=== PATIENT | male | born 1955 | race Caucasian/White ===

== ENCOUNTER 2024-06-29 04:43 | Emergency (ER) | payer BC, SELFPAY ==
[2024-06-29 04:46] VITALS: BP 164/95
[2024-06-29 04:56] VITALS: BP 162/86; BMI 34.3
--- NOTE | 2024-06-29 05:26 | ED.GENMED ---
History of Present Illness
<Mary Prince MD, Resident - Last Filed: 06/29/24 06:19>
General
Chief Complaint: Blood Pressure Problem
Source: patient
Exam Limitations: none
Time Seen by Provider: 06/29/24 05:09
Nursing documentation reviewed up to this point in time: agreed with
Travel History
Have you traveled to any high risk areas for coronavirus over the past 14 days?: No
Have you had any contact with someone who has COVID-19?: No
Do you have any symptoms of coronavirus? Fever > 100 degrees, chills, cough, shortness of breath, sore throat, loss of taste or smell, muscle aches, or headache?: No
History of Present Illness
History of Present Illness:
68-year-old male with past medical history of essential tremors, vertigo, essential hypertension presents to the hospital for evaluation of elevated blood pressure despite taking home medications. Patient started noticing elevated blood pressures
about 3 to 4 weeks ago, 2 weeks ago he saw his primary care who added 2.5 mg of amlodipine to his lisinopril dose, patient has been taking lisinopril 10 mg and amlodipine 2.5 mg every day over the last 2 weeks, despite the new blood pressure
medication patient has high blood pressures. He states that over the last 2 weeks he has headaches, his headaches have no specific nature to it located just at the center of his head, 3/10 in intensity, nonradiating. His essential tremors were
diagnosed about an year and half ago currently he has those tremors spread to his lower jaw, he states that he has learned to live with it. He denies having any dizziness lightheadedness, blurring of vision, nausea, emesis, focal weakness,
sensation changes, chest pain, shortness of breath, palpitations, bowel and bladder incontinence. His last head CT was about an year and half ago for evaluation of his essential tremors.
No family history of sudden cardiac , acute NV in first-degree relatives less than 55, carotid artery stenosis, abdominal aortic aneurysms
If applicable-neuro sx onset
Onset of symptoms known: No
Time pt last seen normal is known: No
Past History
<Mary Prince MD, Resident - Last Filed: 06/29/24 06:19>
Past History
ED Past Medical History: HTN and Other (PNA)
ED Past Surgical History: None
Patient has exhibited threatening behavior?: No
PSI?: No
Social History
Tobacco: Non-smoker
Alcohol: Occasional
Drug: None
Personal:
Living: with family
Employment: Employed
Family History
Family History: Negative Diabetes, Hypertension, CAD, Asthma or Cancer
Phy Exam
<Mary Prince MD, Resident - Last Filed: 06/29/24 06:19>
General Physical Exam
General Presentation: well appearing
General Skin: warm
General Habitus: normal
General Mental: alert
General Hydration: appears well hydrated
ENT Exam
ENT Exam: EOMI, TM's normal and pharynx normal
Eye Exam
Eye Exam: PERRL and EOMI
Cardiovascular Exam
Cardiovascular Exam: regular rate/rhythm, no edema, no gallop, no murmur and normal peripheral pulses
Heart Sounds: normal
Pulmonary Exam
Pulmonary Exam: lungs clear, no respiratory distress, no rales, no crackles and no rhonchi
Gastrointestinal Exam
Gastrointestinal Exam: normal bowel sounds, non tender, soft, no pulsatile mass and non distended
Neurological Exam
Neurological Exam: alert, CN II-XII intact, no motor deficits, normal reflexs and no sensory deficits
NIH Stroke Score
Level of Consciousness: 0 - Alert
LOC questions: 0-Answers both correctly
LOC Commands: 0-Performs both correctly
Best Gaze: 0-Normal
Visual Bean: 0=Normal, no visual loss
Facial palsy: 0=Normal, symmetrical
Motor - Right Arm: 0=No drift 10 seconds
Motor - Left Arm: 0=No drift 10 seconds
Motor - Right Le-No drift 5 seconds
Motor - Left Le-No drift 5 seconds
Limb Ataxia: 0-Absent
Sensation: 0-Normal
Best Language: 0-No aphasia
Dysarthria: 0-Normal
Extinction and Inattention: 0-No abnormality
Total Score:: 0
<Jacinto Toribio, DO - Last Filed: 06/29/24 06:32>
NIH Stroke Score
Total Score:: 0
Course
<Mary Prince MD, Resident - Last Filed: 06/29/24 06:19>
Orders/Labs/Results
Orders:
Orders
06/29/24 05:13
CMP [Comprehensive Metabolic Panel] Urgent
Complete Blood Count/With Diff Urgent
Abnormal Lab Results
06/29/24
05:13
WBC 4.7 L 10^3/uL
(4.8-10.8)
RBC 4.56 L 10^6/uL
(4.70-6.10)
MCH 33.6 H pg
(27.0-31.0)
MPV 10.6 H fL
(7.4-10.4)
Glucose 144 H mg/dl
(70-99)
06/29/24 05:13
06/29/24 05:13
Vital Signs
Initial and Last Documented VS:
Initial Vital Signs
Temp Pulse Resp BP Pulse Ox
98.3 F 73 16 164/95 98
06/29/24 04:46 06/29/24 04:46 06/29/24 04:46 06/29/24 04:46 06/29/24 04:46
Last Documented Vital Signs
Temp Pulse Resp BP Pulse Ox
98.3 F 71 20 140/86 97
06/29/24 04:46 06/29/24 06:15 06/29/24 06:15 06/29/24 06:00 06/29/24 06:15
<Jacinto Toribio DO - Last Filed: 06/29/24 06:32>
Orders/Labs/Results
Orders:
Orders
06/29/24 05:13
CMP [Comprehensive Metabolic Panel] Urgent
Complete Blood Count/With Diff Urgent
Abnormal Lab Results
06/29/24
05:13
WBC 4.7 L 10^3/uL
(4.8-10.8)
RBC 4.56 L 10^6/uL
(4.70-6.10)
MCH 33.6 H pg
(27.0-31.0)
MPV 10.6 H fL
(7.4-10.4)
Glucose 144 H mg/dl
(70-99)
06/29/24 05:13
06/29/24 05:13
Vital Signs
Initial and Last Documented VS:
Initial Vital Signs
Temp Pulse Resp BP Pulse Ox
98.3 F 73 16 164/95 98
06/29/24 04:46 06/29/24 04:46 06/29/24 04:46 06/29/24 04:46 06/29/24 04:46
Last Documented Vital Signs
Temp Pulse Resp BP Pulse Ox
98.3 F 71 20 140/86 97
06/29/24 04:46 06/29/24 06:15 06/29/24 06:15 06/29/24 06:00 06/29/24 06:15
<Mary Prince MD, Resident - Last Filed: 06/29/24 06:19>
MDM/Problems Addressed
Differential Diagnosis Includes:
CVA, TIA, acute CAD, essential hypertension
MDM/Problems Addressed:
Physical examination findings not pertinent with CVA.
No chest pain no shortness of breath no palpitations, no indication for obtaining EKG or troponins.
<Mary Prince MD, Resident - Last Filed: 06/29/24 06:19>
*Pulse Oximetry
Patient hypoxic: no
*EKG
Interpreted by ED Provider?: NA
*Junior Manufacturing Engineer Interpretation
Rate: normal
Interpretation: normal
Heart Rate: 80
Rhythm: sinus
*Critical Care Note
Total Time (30-74mins, 75-104mins- exclusive of procedures): Not Applicable
<Mary Prince MD, Resident - Last Filed: 06/29/24 06:19>
Update Note
Update Note:
Patient CBC and CMP-there is mild leukopenia with WBC count at 4.7, his electrolytes are within normal limits, renal function and hepatic function are within normal limits, blood glucose is elevated at 144.
Advised patient to bump up his amlodipine 2.5 mg oral to 5 mg oral beginning today.
Patient is stable for discharge.
ED Attending Note
<Mary Prince MD, Resident - Last Filed: 06/29/24 06:19>
-
Portions of this chart may have been created with voice recognition software.� Occasional wrong word or��sound alike� substitutions may have occurred due to the inherent limitations of voice recognition software.
<Jacinto Toribio, DO - Last Filed: 06/29/24 06:32>
ED Attending Note
Patient seen and examined by attending physician: Yes
I performed a history and physical exam of patient and discussed management with resident, I reviewed resident's note and agree with documented findings and plan of care.: Yes
ED Attending Note:
Seen with resident examined independently 60-year-old male resting tremor presents with elevated blood pressure no chest pain no shortness of breath has had mild headaches intermittently for some time not not correlating to his elevated blood
pressure
Discharge Plan
Departure
Patient Disposition: Home (Routine Discharge)
Date of Disposition: 06/29/24
Time of Disposition: 06:14
Patient with high blood pressure during this ER visit?: Yes
Discharge Problem:
Essential (primary) hypertension
Instructions: High Blood Pressure (DC)
Prescriptions:
New
amlodipine [Norvasc] 5 mg tablet
5 mg PO DAILY 30 Days Qty: 30 1RF
No Action
lisinopril 20 MG tablet
10 mg PO DAILY
simvastatin 10 MG tablet
10 mg PO DAILY
azithromycin 250 MG tablet
250 mg PO DAILY Qty: 4 0RF
codeine-guaifenesin 10 ML liquid
10 ml PO BID PRN (Reason: cough) Qty: 400 0RF
ciprofloxacin HCl 250 MG tablet
250 mg PO BID Qty: 6 0RF
azithromycin [Zithromax] 500 MG tablet
500 mg PO Daily Qty: 2 0RF
metronidazole 500 MG tablet
500 mg PO TID Qty: 30 0RF
vancomycin 125 MG/2.5 ML recon soln
125 mg PO QID Qty: 100 0RF
Referrals:
Willian Lee MD [Family Provider] -
Activity Restrictions/Additional Instructions:
follow up with your primary care physician in 1 week.
Take Amlodipine 5mg once a day. prescription is sent to your pharmacy.
Interventions
Interventions:
*Risk Screen - Suicide Last Done: 06/29/24 04:46
*General Assessment Last Done: 06/29/24 04:46
*Neglect/Abuse Screening Last Done: 06/29/24 04:46
ED- Fall Risk Assessment Last Done: 06/29/24 04:46
*ED COVID-19 Vaccine History Last Done: 06/29/24 04:46
*Nursing Disposition Last Done: 06/29/24 06:29
ED- Cardiac Assessment Last Done: 06/29/24 05:16
ED- Neurological Assessment Last Done: 06/29/24 05:16
ED- Pulmonary Assessment Last Done: 06/29/24 05:16
Discharge Date and Time
Print Language: SAMOAN
[2024-06-29 05:33] LABS: % Basophils 0.6 % (0-2); % Eosinophils 3.4 % (0-6); % Immature Granulocytes 0.2 % (0-0.5); % Monocytes 8.5 % (1.7-9.3); % Neutrophils 46.3 % (42.2-75.2); Absolute Eosinophils 0.2 10^3/uL (0-0.7); Absolute Lymphocytes 1.9 10^3/uL (1.2-3.4); Absolute Monocytes 0.4 10^3/uL (0.1-0.6); Absolute Neutrophils 2.2 10^3/uL (1.4-6.5); Hematocrit 41.9 % (39.0-52.0); Hemoglobin 15.3 g/dL (13.0-18.0); Mean Corp Hgb Conc. 36.5 g/dL (33.0-37.0); Mean Corpuscular Hgb 33.6 pg (27.0-31.0); Mean Corpuscular Volume 91.9 fL (80.0-94.0); Mean Platelet Volume 10.6 fL (7.4-10.4); Nucleated Red Blood Cells % 0 % (-); Platelet Count 184 10^3/uL (130-400); Red Blood Cell Count 4.56 10^6/uL (4.70-6.10); Red Cell Dist. Width 12.1 % (11.5-14.5); White Blood Cell Count 4.7 10^3/uL (4.8-10.8)
[2024-06-29 05:56] LABS: ALT (SGPT) 22 U/L (0-50); AST (SGOT) 22 U/L (17-59); Albumin 4.2 g/dl (3.5-5.0); Alkaline Phosphatase 61 U/L (38-126); Blood Urea Nitrogen 16 mg/dl (9-20); Calcium 9.5 mg/dl (8.4-10.2); Carbon Dioxide 25 mmol/L (22-30); Chloride 102 mmol/L (98-107); Estimated Creatinine Clearance 96 ml/min; Glucose 144 mg/dl (70-99); Sodium 138 mmol/L (135-145); Total Bilirubin 0.7 mg/dl (0.2-1.3); Total Protein 6.8 g/dl (6.3-8.2); eGFR > 60.00
[2024-06-29 06:00] VITALS: BP 140/86
== END 2024-06-29 06:39 | disposition home or self-care (01) ==
LOC: EMR 04:43
PROVIDERS: EMERGENCY PHYSICIAN Emergency Medicine; FAMILY PHYSICIAN Internal Medicine
DX: I10 Essential (primary) hypertension (principal); Z79.899 Other long term (current) drug therapy
CPT/HCPCS: 99283; 80053; 85025

== ENCOUNTER 2024-10-01 18:54 | Emergency (ER) | payer BC, SELFPAY ==
[2024-10-01 18:55] VITALS: BP 131/73
--- NOTE | 2024-10-01 21:39 | ED.GENMED ---
History of Present Illness
General
Chief Complaint: Musculo-Skeletal Complaint
Time Seen by Provider: 10/01/24 21:39
History of Present Illness
History of Present Illness:
TIME OF INITIAL ENCOUNTER: 9:40 PM
HPI: The patient was stepping up onto a curb with his left lower extremity and abruptly had severe left knee pain. This happened a few hours ago but currently he spontaneously feels improved. He has seen Dr. Benitez in the past and did have a
therapeutic arthrocentesis in the past.
EXAM:
GENERAL: Well appearing in no distress
HEENT: Moist oral mucosa
NEUROLOGIC: Excellent strength all extremities, no obvious coordination deficits
PSYCHIATRIC: Appropriate mental status, normal insight and judgement
EXTREMITIES: There is no significant joint effusion at the left knee, the patellar and quadriceps tendons are intact, negative Caroline test, negative drawer testing, no significant bony testing, fairly good active range of motion
SKIN: No rash, no lesions
NUMBER AND COMPLEXITY OF PROBLEMS ADDRESSED AT THE ENCOUNTER
� Chronic conditions affecting care: High blood pressure
� Acute Exacerbation and/or Progression of Chronic Illness: This is an acute problem�I personally reviewed images
� Differential Diagnosis includes: Internal derangement of the left knee, tendon injury, doubt fracture
AMOUNT AND/OR COMPLEXITY OF DATA TO BE REVIEWED AND ANALYZED
� I performed an independent evaluation of and my interpretation is:
EKG:
CT:
X-rays: X-ray of the left knee shows no acute abnormality; very mild joint space narrowing noted
Laboratory Studies:
Other:
� Review of other/old records: I reviewed records, the patient was seen here last June related to high blood pressure
� Clinical information was obtained by an independent historian: None needed
� Prescriptions/Medications Considered but not given:
� Further testing considered but not performed:
RISK OF COMPLICATIONS AND/OR MORBIDITY OR MORTALITY OF PATIENT MANAGEMENT
� Social determinants of health affecting care: Lives at home
� Discussion with other providers:
� Escalation of care including admission/observation vs risk of discharge considered: The patient has a relatively unremarkable ED workup. He will take NSAIDs for pain we have also given him knee immobilizer. He will follow-up
Dr. Benitez.
ANY OTHER UPDATES:
Past History
Past History
ED Past Medical History: HTN and Other (PNA)
ED Past Surgical History: None
Patient has exhibited threatening behavior?: No
PSI?: No
Social History
Tobacco: Non-smoker
Alcohol: Occasional
Drug: None
Personal:
Living: with family
Employment: Employed
Family History
Family History: Negative Diabetes, Hypertension, CAD, Asthma or Cancer
Phy Exam
Physical Exam
Physical Exam:
See HPI
Course
Orders/Labs/Results
Orders:
Orders
10/01/24 18:58
CR Knee - Left 4 Or More View* Urgent
Comment:
Reason For Exam: pain
10/01/24 21:45
Knee Immobilizer Left-Treatmen ONCE
Ibuprofen [Motrin] 800 mg PO NOW STA
Vital Signs
Initial and Last Documented VS:
Initial Vital Signs
Temp Pulse Resp BP Pulse Ox
36.8 C 74 18 131/73 98
10/01/24 18:55 10/01/24 18:55 10/01/24 18:55 10/01/24 18:55 10/01/24 18:55
Last Documented Vital Signs
Temp Pulse Resp BP Pulse Ox
36.8 C 74 18 131/73 98
10/01/24 18:55 10/01/24 18:55 10/01/24 18:55 10/01/24 18:55 10/01/24 18:55
*Critical Care Note
Total Time (30-74mins, 75-104mins- exclusive of procedures): Not Applicable
ED Attending Note
-
Portions of this chart may have been created with voice recognition software.� Occasional wrong word or��sound alike� substitutions may have occurred due to the inherent limitations of voice recognition software.
Discharge Plan
Departure
Patient Disposition: Home (Routine Discharge)
Date of Disposition: 10/01/24
Time of Disposition: 21:52
Patient with high blood pressure during this ER visit?: Yes
Discharge Problem:
Acute knee pain
Instructions: Knee Immobilizer (DC), Knee Sprain (DC), BLOOD PRESSURE
Prescriptions:
No Action
lisinopril 20 MG tablet
10 mg PO DAILY
simvastatin 10 MG tablet
10 mg PO DAILY
azithromycin 250 MG tablet
250 mg PO DAILY Qty: 4 0RF
codeine-guaifenesin 10 ML liquid
10 ml PO BID PRN (Reason: cough) Qty: 400 0RF
ciprofloxacin HCl 250 MG tablet
250 mg PO BID Qty: 6 0RF
azithromycin [Zithromax] 500 MG tablet
500 mg PO Daily Qty: 2 0RF
metronidazole 500 MG tablet
500 mg PO TID Qty: 30 0RF
vancomycin 125 MG/2.5 ML recon soln
125 mg PO QID Qty: 100 0RF
amlodipine [Norvasc] 5 mg tablet
5 mg PO DAILY 30 Days Qty: 30 1RF
Referrals:
Johnathon Benitez MD [Active] -
Activity Restrictions/Additional Instructions:
Because of the x-ray shows no sign of abnormality�no broken bone. There is some very mild osteoarthritis noted. Based on exam there is no clear sign of ACL/MCL/meniscus injury however if you have ongoing symptoms I recommend that you follow-up
with your orthopedist. I recommend 3-4 [id number] ibuprofen (Motrin) every 8 hours with food for a few days. Return here if worse.
Interventions
Interventions:
*Risk Screen - Suicide Last Done: 10/01/24 18:55
*General Assessment Last Done: 10/01/24 18:55
*Neglect/Abuse Screening Last Done: 10/01/24 18:55
*ED COVID-19 Vaccine History Last Done: 10/01/24 18:55
Discharge Date and Time
Print Language: SWAZI
[2024-10-01 22:05] VITALS: BP 151/81
[2024-10-01] MEDS: MOTRIN 800 MG PO (22:06)
== END 2024-10-01 22:25 | disposition home or self-care (01) ==
LOC: EMR 18:54
PROVIDERS: EMERGENCY PHYSICIAN Emergency Medicine; FAMILY PHYSICIAN Internal Medicine
DX: M25.562 Pain in left knee (principal); I10 Essential (primary) hypertension
CPT/HCPCS: 29505; 99283; 73564